=== PATIENT | female | born 1945 | race Caucasian/White ===

== ENCOUNTER 2019-12-30 11:49 | Inpatient (IN) | payer MEDICARE ==
[~2019-12-30] VITALS: Ht 165.1 cm; Wt 68.8 kg
--- NOTE | 2019-12-30 15:45 | NUR ---
PATIENT ARRIVED A DIRECT ADMIT AT THIS TIME VIA AMBULANCE FROM [facility].
--- NOTE | 2019-12-30 15:54 | NUR ---
PAGED HOSPITALIST GROUP TO GET ORDERS FROM RECEIVING MD. PAGED "SERVANDO [phone]- DIRECT ADMIT HERE RAMIRO BEAN. WHICH DOCTOR HAS NEXT ADMIT?"
--- NOTE | 2019-12-30 15:59 | NUR ---
PAGED DR. LAZARO, "Janet [phone]- DIRECT ADMIT RAMIRO AMAYA HERE FROM [facility] WITH NSTEMI. ADMIT ORDERS NEEDED. "
[2019-12-30 16:00] VITALS: BP 110/73
[2019-12-30] MEDS ORDERED: heparin 25,000 UNIT/250ml bag 250 ML IV SCH (16:25)
[2019-12-30] MEDS ORDERED: heparin 10,000 units/1 ML INJ IV PRN (16:25)
[2019-12-30] MEDS ORDERED: heparin 10,000 units/1 ML INJ IV ONE (16:25)
[2019-12-30] MEDS ORDERED: HYDROcodone/acetaminophen 5mg/325mg tablet PO PRN (16:30)
[2019-12-30] MEDS ORDERED: acetaminophen 325mg tablet PO PRN ×2 (16:30)
[2019-12-30] MEDS ORDERED: mag hydrox/Alum hydrox/simeth 30ml oral suspension PO PRN (16:30)
[2019-12-30] MEDS ORDERED: ondansetron/PF 4mg/2ml inj IV PRN (16:30)
[2019-12-30] MEDS ORDERED: morphine 2 MG/ML inj. syringe IV PRN ×2 (16:30)
[2019-12-30] MEDS ORDERED: magnesium hydroxide 30ml (MOM) UD suspension PO PRN (16:30)
[2019-12-30 17:12] LABS: ALBUMIN 2.7 G/DL (3.4-5.0); BLOOD UREA NITROGEN 34 MG/DL (7-18); GLUCOSE 113 MG/DL (70-104); SODIUM 138 MMOL/L (135-145)
[2019-12-30] MEDS ORDERED: SIMV-45 PO (17:17)
[2019-12-30] MEDS ORDERED: CARV3.122 PO (17:17)
[2019-12-30] MEDS ORDERED: OXCA150T14 PO (17:17)
[2019-12-30] MEDS ORDERED: DONE-46 PO (17:17)
[2019-12-30] MEDS ORDERED: ALBU18HF2 PO (17:17)
[2019-12-30] MEDS ORDERED: LOSA50TA64 PO (17:17)
[2019-12-30] MEDS ORDERED: ESTR42.510 TOP (17:17)
[2019-12-30] MEDS ORDERED: TIOT18CA3 PO (17:17)
[2019-12-30] MEDS ORDERED: NYSPWD TOP (17:17)
[2019-12-30] MEDS ORDERED: SPIR25TA5 PO (17:17)
[2019-12-30] MEDS ORDERED: AMLO5TAB16 PO (17:17)
[2019-12-30 17:31] LABS: PARTIAL THROMBOPLASTIN TIME 27 SECONDS (22-32)
[2019-12-30 17:35] LABS: ANION GAP 6 (8-16); BUN/CREATININE RATIO 36.2 (6.6-38.0); CALCIUM 9.3 MG/DL (8.5-10.1); CHLORIDE 109 MMOL/L (99-107); CREATININE 0.94 MG/DL (0.40-0.90); POTASSIUM 5.6 MMOL/L (3.5-5.1); TOTAL CARBON DIOXIDE 22.6 MMOL/L (24-32); eGFR 58 ML/MIN
[2019-12-30 17:37] LABS: BASOPHILS % (AUTO) 0.1 % (0-1); EOSINOPHILS % (AUTO) 0 % (0-6); HEMATOCRIT 42.8 % (35.0-45.0); HEMOGLOBIN 13.8 g/dl (12.0-16.0); LYMPHOCYTES # (AUTO) 0.8 X10'3 (1.1-4.8); LYMPHOCYTES % (AUTO) 6.2 % (21-51); MEAN CORPUSCULAR HEMOGLOBIN 29.2 PG (27.0-31.0); MEAN CORPUSCULAR HGB CONC 32.4 g/dL (33.0-36.5); MEAN CORPUSCULAR VOLUME 90.3 FL (78-98); MEAN PLATELET VOLUME 9.4 FL (7.4-10.4); MONOCYTES # (AUTO) 0.8 X10'3 (0-0.9); MONOCYTES % (AUTO) 5.9 % (2-12); NEUTROPHILS # (AUTO) 11.4 X10'3 (1.8-7.7); NEUTROPHILS % (AUTO) 87.8 % (42-75); PLATELET COUNT 140 X10'3 (140-440); RED BLOOD COUNT 4.74 X10'6 (4.20-5.60); RED CELL DISTRIBUTION WIDTH 16.5 % (11.5-14.5)
[2019-12-30 17:47] LABS: TROPONIN I 7.99 NG/ML (0.0-0.05)
[2019-12-30 18:00] VITALS: BP 154/97
--- NOTE | 2019-12-30 18:03 | NUR ---
Paged hosp, "Kerline [phone]- solange Lara, Crit trop 7.99 today (last trop was 7.6 at prev hosp) BNP 23, 944, K+ 5.6, WBC 13 etc. See labs"
--- NOTE | 2019-12-30 18:08 | NUR ---
Gave report to Susan ZUNIGA, transferred care.
[2019-12-30] MEDS ORDERED: furosemide 20 MG/2 ML vial IV ONE (18:10)
[2019-12-30] MEDS: carVEDilol 3.125mg tablet PO SCH (20:09)
[2019-12-30 22:00] VITALS: BP 144/80
[2019-12-30] MEDS: ipratropium/albuterol 3ml nebule NEB PRN (23:16)
[2019-12-31 02:00] VITALS: BP 135/80
--- NOTE | 2019-12-31 06:32 | NUR ---
Patient in room PCU 3027. I have received report from Susan ZUNIGA and had the opportunity to ask questions and assume patient care.
[2019-12-31 07:00] VITALS: BP 124/64
[2019-12-31 07:26] LABS: BASOPHILS % (AUTO) 0.3 % (0-1); EOSINOPHILS % (AUTO) 0.1 % (0-6); HEMATOCRIT 44.3 % (35.0-45.0); HEMOGLOBIN 14.5 g/dl (12.0-16.0); LYMPHOCYTES # (AUTO) 1.5 X10'3 (1.1-4.8); LYMPHOCYTES % (AUTO) 15.4 % (21-51); MEAN CORPUSCULAR HEMOGLOBIN 29.2 PG (27.0-31.0); MEAN CORPUSCULAR HGB CONC 32.6 g/dL (33.0-36.5); MEAN CORPUSCULAR VOLUME 89.5 FL (78-98); MEAN PLATELET VOLUME 9.3 FL (7.4-10.4); MONOCYTES # (AUTO) 0.5 X10'3 (0-0.9); MONOCYTES % (AUTO) 5.4 % (2-12); NEUTROPHILS # (AUTO) 7.7 X10'3 (1.8-7.7); NEUTROPHILS % (AUTO) 78.8 % (42-75); PLATELET COUNT 150 X10'3 (140-440); RED BLOOD COUNT 4.95 X10'6 (4.20-5.60); RED CELL DISTRIBUTION WIDTH 16.3 % (11.5-14.5); WHITE BLOOD COUNT 9.7 X10'3 (4.5-11.0)
[2019-12-31 07:43] LABS: ALBUMIN 2.6 G/DL (3.4-5.0); ANION GAP 8 (8-16); BLOOD UREA NITROGEN 39 MG/DL (7-18); BUN/CREATININE RATIO 41.1 (6.6-38.0); CHLORIDE 106 MMOL/L (99-107); CHOL/HDL RATIO 4.1 (0.00-4.99); CHOLESTEROL 152 MG/DL (0-200); CREATININE 0.95 MG/DL (0.40-0.90); GLUCOSE 88 MG/DL (70-104); HDL CHOLESTEROL 37 MG/DL (35-60); LDL CHOLESTEROL 99 MG/DL (50-100); POTASSIUM 4.1 MMOL/L (3.5-5.1); SODIUM 142 MMOL/L (135-145); TOTAL CARBON DIOXIDE 28.3 MMOL/L (24-32); TRIGLYCERIDES 157 MG/DL (20-135); eGFR 58 ML/MIN
[2019-12-31] MEDS: aspirin 81mg tablet.DR PO SCH (07:45)
[2019-12-31] MEDS: carVEDilol 3.125mg tablet PO SCH ×2 (07:46→19:00)
[2019-12-31] MEDS: furosemide 20 MG/2 ML vial IV SCH ×2 (07:46→19:00)
--- NOTE | 2019-12-31 08:00 | NUR ---
Dr. Welsh and nurse at bedside with patient. Md is aware that patient is schedule for heart cath w or w/o stents. Pt denies chest pain. No new ordered at this time. Will continue to monitor.
[2019-12-31] MEDS ORDERED: aspirin 81mg tab.chew PO SCH (08:30)
[2019-12-31] MEDS ORDERED: ipratropium 0.5 MG/2.5ML nebule IH PRN (10:35)
[2019-12-31 11:00] VITALS: BP 93/64
[2019-12-31] MEDS ORDERED: LIDOcaine/PRILOcaine 5gm cream TP ONE (13:30)
--- NOTE | 2019-12-31 13:48 | NUR ---
Spoke with patient's sister, Mai. Mai is aware of plan. patient is prep and ready to go. Emla cream will be applied at 1630. Will continue to monitor.
--- NOTE | 2019-12-31 14:50 | NUR ---
Faxed over Pharmacy medicaiton list to ICU for khraling to review. Pt states that [place] to [place],
[2019-12-31 15:00] VITALS: BP 103/78
[2019-12-31] MEDS: atorvastatin 20mg tablet PO SCH (16:22)
--- NOTE | 2019-12-31 17:42 | NUR ---
Dr. Collazo at bedside with patient. New orders to hold off on Heart Cath today. Start Brillant 180 Po now then 90 BID Po. Patient can follow up with out patient when discharge. Will continue to monitor. Addendum: 12/31/19 at 1828 by Rolando Vance RN CALLED DR. LAZARO PER NEW ORDER OF BRILINTA AND MEDICAL MANAGEMENT WITH POSSIBLE D/C - REQUESTED D/C OF HEPARIN GTT. MD AGREED TO ORDER.
[2019-12-31] MEDS ORDERED: ticagrelor 90mg tablet PO ONE (17:45)
[2019-12-31 18:00] VITALS: BP 126/80
--- NOTE | 2019-12-31 18:25 | NUR ---
PAGED TO HOSPITALIST promotional table spacer PAGER ID: [phone] MESSAGE: [id number] TOMASRAMIRO GARCIA 74/F - PT NO LONGER TO BE CATH'D AND WILL BE MANAGED MEDICALLY. WOO STARTED PT ON BRILINTA TONIGHT AND BID 90MG WITH POSSIBLE D/C TMW. WANT TO VERIFY D/C ORDERS FOR CARDIAC HEPARIN GTT. [id number] ANKITA
--- NOTE | 2019-12-31 18:27 | NUR ---
Problems reprioritized. Patient report given, questions answered & plan of care reviewed with Chris RN.
--- NOTE | 2019-12-31 18:34 | NUR ---
Patient in room PCU 3027. I have received report from BALBIR Baker and had the opportunity to ask questions and assume patient care.
--- NOTE | 2019-12-31 19:10 | NUR ---
Dr. Milli Collazo called to verify patient status. Discussed d/c of heparin gtt and admin of brillinta medication. No new orders at this time.
[2019-12-31] MEDS: oxcarbazepine 150mg tablet PO SCH (19:15)
[2019-12-31] MEDS: ipratropium/albuterol 3ml nebule NEB PRN (20:23)
--- NOTE | 2019-12-31 20:33 | NUR ---
Pt c/o nausea with desaturation experience - no chest pain, no back pain, slight SOB. Pt on 6L NC from RA. Will perform stat ekg to verify cardiac status. Addendum: 01/01/20 at 0627 by Rolando Vance RN EKG TURNED OUT TO BE AFIB, NEGATIVE FOR STEMI, WILL TITRATE O2 DOWN. PT NO LONGER C/O OF NAUSEA.
[2020-01-01 02:00] VITALS: BP 142/85
[2020-01-01 05:17] LABS: ALBUMIN 2.8 G/DL (3.4-5.0); ANION GAP 7 (8-16); BLOOD UREA NITROGEN 39 MG/DL (7-18); BUN/CREATININE RATIO 36.4 (6.6-38.0); CALCIUM 9.3 MG/DL (8.5-10.1); CHLORIDE 102 MMOL/L (99-107); CREATININE 1.07 MG/DL (0.40-0.90); GLUCOSE 106 MG/DL (70-104); POTASSIUM 3.8 MMOL/L (3.5-5.1); SODIUM 139 MMOL/L (135-145); eGFR 50 ML/MIN
[2020-01-01 05:26] LABS: BASOPHILS % (AUTO) 0.4 % (0-1); EOSINOPHILS # (AUTO) 0.1 X10'3 (0-0.9); HEMATOCRIT 48.8 % (35.0-45.0); LYMPHOCYTES # (AUTO) 0.8 X10'3 (1.1-4.8); LYMPHOCYTES % (AUTO) 11.6 % (21-51); MEAN CORPUSCULAR HEMOGLOBIN 29.1 PG (27.0-31.0); MEAN CORPUSCULAR HGB CONC 32.8 g/dL (33.0-36.5); MEAN CORPUSCULAR VOLUME 88.7 FL (78-98); MEAN PLATELET VOLUME 9.1 FL (7.4-10.4); MONOCYTES # (AUTO) 0.4 X10'3 (0-0.9); MONOCYTES % (AUTO) 6.3 % (2-12); NEUTROPHILS # (AUTO) 5.4 X10'3 (1.8-7.7); NEUTROPHILS % (AUTO) 80.7 % (42-75); PLATELET COUNT 164 X10'3 (140-440); RED CELL DISTRIBUTION WIDTH 16.1 % (11.5-14.5); WHITE BLOOD COUNT 6.7 X10'3 (4.5-11.0)
[2020-01-01 06:00] VITALS: BP 108/62
--- NOTE | 2020-01-01 06:00 | NUR ---
Patient in room PCU 3027. I have received report from Chris ZUNIGA and had the opportunity to ask questions and assume patient care.
--- NOTE | 2020-01-01 06:00 | NUR ---
Patient in room PCU 3027. I have received report from Chris ZUNIGA and had the opportunity to ask questions and assume patient care.
--- NOTE | 2020-01-01 06:28 | NUR ---
Problems reprioritized. Patient report given, questions answered & plan of care reviewed with BLAINE ZUNIGA.
[2020-01-01] MEDS ORDERED: atorvastatin 20mg tablet PO SCH (08:00)
[2020-01-01] MEDS: oxcarbazepine 150mg tablet PO SCH ×2 (08:25→19:19)
[2020-01-01] MEDS: donepezil 5mg tablet PO SCH (08:25)
[2020-01-01] MEDS: aspirin 81mg tablet.DR PO SCH (08:25)
[2020-01-01] MEDS: furosemide 20 MG/2 ML vial IV SCH ×2 (08:25→19:19)
[2020-01-01] MEDS: ticagrelor 90mg tablet PO SCH ×2 (08:25→19:19)
[2020-01-01] MEDS: carVEDilol 3.125mg tablet PO SCH ×2 (08:25→19:20)
[2020-01-01] MEDS: atorvastatin 20mg tablet PO SCH (08:25)
[2020-01-01 11:00] VITALS: BP 92/50
--- NOTE | 2020-01-01 13:52 | NUR ---
Physical therapy refusing to work with patient because of critical troponin levels. I told them Dr. Ibarra was okay with physical therapy working with the patient as Dr. Ibarra is trying to discharge the patient. Will notify Dr. Ibarra.
[2020-01-01 15:00] VITALS: BP 94/64
[2020-01-01 18:00] VITALS: BP 98/60
--- NOTE | 2020-01-01 18:27 | NUR ---
Problems reprioritized. Patient report given, questions answered & plan of care reviewed with Chris RN.
[2020-01-01 23:00] VITALS: BP 116/68
[2020-01-02 03:00] VITALS: BP 121/75
--- NOTE | 2020-01-02 06:02 | NUR ---
Problems reprioritized. Patient report given, questions answered & plan of care reviewed with Alysha ZUNIGA.
--- NOTE | 2020-01-02 06:07 | NUR ---
Patient in room PCU 3027. I have received report from NADIA Perez and had the opportunity to ask questions and assume patient care.
[2020-01-02 07:00] VITALS: BP 102/59
[2020-01-02 07:56] LABS: BASOPHILS % (AUTO) 0.4 % (0-1); EOSINOPHILS # (AUTO) 0.1 X10'3 (0-0.9); EOSINOPHILS % (AUTO) 1.2 % (0-6); HEMATOCRIT 51.2 % (35.0-45.0); LYMPHOCYTES # (AUTO) 0.8 X10'3 (1.1-4.8); LYMPHOCYTES % (AUTO) 11.7 % (21-51); MEAN CORPUSCULAR HEMOGLOBIN 29.3 PG (27.0-31.0); MEAN CORPUSCULAR HGB CONC 33.2 g/dL (33.0-36.5); MEAN CORPUSCULAR VOLUME 88.1 FL (78-98); MONOCYTES # (AUTO) 0.6 X10'3 (0-0.9); MONOCYTES % (AUTO) 8.5 % (2-12); NEUTROPHILS # (AUTO) 5.4 X10'3 (1.8-7.7); NEUTROPHILS % (AUTO) 78.2 % (42-75); PLATELET COUNT 186 X10'3 (140-440); RED BLOOD COUNT 5.82 X10'6 (4.20-5.60); RED CELL DISTRIBUTION WIDTH 15.8 % (11.5-14.5); WHITE BLOOD COUNT 6.9 X10'3 (4.5-11.0)
[2020-01-02] MEDS: furosemide 20 MG/2 ML vial IV SCH ×2 (08:00→19:14)
[2020-01-02] MEDS: carVEDilol 3.125mg tablet PO SCH ×2 (08:00→19:14)
[2020-01-02 08:10] LABS: ALBUMIN 3.1 G/DL (3.4-5.0); ANION GAP 9 (8-16); BLOOD UREA NITROGEN 41 MG/DL (7-18); BUN/CREATININE RATIO 33.3 (6.6-38.0); CALCIUM 9.4 MG/DL (8.5-10.1); CHLORIDE 106 MMOL/L (99-107); CREATININE 1.23 MG/DL (0.40-0.90); GLUCOSE 125 MG/DL (70-104); SODIUM 146 MMOL/L (135-145); TOTAL CARBON DIOXIDE 31.4 MMOL/L (24-32); eGFR 43 ML/MIN
[2020-01-02] MEDS: ticagrelor 90mg tablet PO SCH (09:21)
[2020-01-02] MEDS: atorvastatin 20mg tablet PO SCH (09:21)
[2020-01-02] MEDS: oxcarbazepine 150mg tablet PO SCH ×2 (09:21→19:14)
[2020-01-02] MEDS: donepezil 5mg tablet PO SCH (09:21)
[2020-01-02] MEDS: aspirin 81mg tablet.DR PO SCH (09:29)
[2020-01-02 11:00] VITALS: BP 125/86
[2020-01-02 15:00] VITALS: BP 139/91
--- NOTE | 2020-01-02 15:41 | NUR ---
Paged Dr Ibarra PAGER ID: [phone] MESSAGE: Re Kira Lara [id number] Pt's PCP would like to talk to you regarding pt's care. Dr Marin Pate [phone]. Thanks Alysha [phone]
[2020-01-02 18:00] VITALS: BP 154/69
--- NOTE | 2020-01-02 18:30 | NUR ---
Problems reprioritized. Patient report given, questions answered & plan of care reviewed with NADIA Leach. Pt resting comfortably at change of shift. Infomred RN that patient's oxygen level needs to be monitored, we are trialing her off of oxygen with possibly qualifying her with home 02 tomorrow.
[2020-01-02] MEDS: apixaban 2.5mg tablet PO SCH (19:14)
[2020-01-02 22:00] VITALS: BP 112/73
[2020-01-03 02:00] VITALS: BP 121/74
[2020-01-03 05:45] LABS: BASOPHILS % (AUTO) 0.3 % (0-1); EOSINOPHILS # (AUTO) 0.2 X10'3 (0-0.9); EOSINOPHILS % (AUTO) 2.3 % (0-6); HEMATOCRIT 50.4 % (35.0-45.0); HEMOGLOBIN 16.8 g/dl (12.0-16.0); LYMPHOCYTES % (AUTO) 14.5 % (21-51); MEAN CORPUSCULAR HEMOGLOBIN 29.8 PG (27.0-31.0); MEAN CORPUSCULAR HGB CONC 33.3 g/dL (33.0-36.5); MEAN CORPUSCULAR VOLUME 89.5 FL (78-98); MEAN PLATELET VOLUME 9.2 FL (7.4-10.4); MONOCYTES # (AUTO) 0.6 X10'3 (0-0.9); MONOCYTES % (AUTO) 8.5 % (2-12); NEUTROPHILS # (AUTO) 5.2 X10'3 (1.8-7.7); NEUTROPHILS % (AUTO) 74.4 % (42-75); PLATELET COUNT 183 X10'3 (140-440); RED BLOOD COUNT 5.63 X10'6 (4.20-5.60); RED CELL DISTRIBUTION WIDTH 15.9 % (11.5-14.5); WHITE BLOOD COUNT 7.1 X10'3 (4.5-11.0)
[2020-01-03 05:53] LABS: ANION GAP 5 (8-16); BLOOD UREA NITROGEN 44 MG/DL (7-18); BUN/CREATININE RATIO 35.8 (6.6-38.0); CALCIUM 8.9 MG/DL (8.5-10.1); CHLORIDE 104 MMOL/L (99-107); CREATININE 1.23 MG/DL (0.40-0.90); GLUCOSE 124 MG/DL (70-104); SODIUM 140 MMOL/L (135-145); TOTAL CARBON DIOXIDE 31.3 MMOL/L (24-32); eGFR 43 ML/MIN
[2020-01-03 06:00] VITALS: BP 89/52
--- NOTE | 2020-01-03 06:03 | NUR ---
Problems reprioritized. Patient report given, questions answered & plan of care reviewed with Alysha Jones RN.
--- NOTE | 2020-01-03 06:24 | NUR ---
Patient in room PCU 3027. I have received report from NADIA Leach and had the opportunity to ask questions and assume patient care. Pt sleeping comfortably at change of shift.
[2020-01-03] MEDS: apixaban 2.5mg tablet PO SCH (07:41)
[2020-01-03] MEDS: atorvastatin 20mg tablet PO SCH (07:42)
[2020-01-03] MEDS: oxcarbazepine 150mg tablet PO SCH (07:42)
[2020-01-03] MEDS: donepezil 5mg tablet PO SCH (07:42)
[2020-01-03] MEDS: aspirin 81mg tablet.DR PO SCH (07:43)
[2020-01-03] MEDS: carVEDilol 3.125mg tablet PO SCH (07:48)
[2020-01-03] MEDS ORDERED: clopidogrel 75mg tablet PO SCH (08:00)
[2020-01-03] MEDS: furosemide 20 MG/2 ML vial IV SCH (08:00)
--- NOTE | 2020-01-03 10:15 | NUR ---
O2 Sat at rest on room air:__88_% If below 89%: Recovery O2 Sat at rest on _2__LPM:_95%: via nasal cannula____(mask/nasal cannula, etc..) No further documentation is necessary. If O2 Sat did not drop below 89% on room air,ambulate patient on room air. O2 Sat while ambulating on room air:___% Recovery O2 Sat while ambulating on ___LPM:___% No further documentation is necessary. If patient does not drop below 89% while ambulating, he/she does not qualify for home O2.
[2020-01-03 10:44] VITALS: BP 116/75
[2020-01-03] MEDS ORDERED: CLOP75TA35 PO (10:47)
[2020-01-03] MEDS ORDERED: APIX2.5T PO (10:47)
[2020-01-03] MEDS ORDERED: ASPI-1071 PO (10:47)
[2020-01-03 11:00] VITALS: BP 124/70
--- NOTE | 2020-01-03 14:26 | NUR ---
Patient stable for discharge per MD orders. All instructions were given to patient and sister (Mai). PIV discontinued, cannula intact. Tele discontinued, television mechanic notified. All belongings collected and sent with pt. Appt made with Dr Zhu sunday01/05/20 at 10:30. Wheeled to [facility] and placed in sister's [facility]. Medications called into Irma at [facility]. Addendum: 01/03/20 at 1458 by Alysha Gomez RN Called [facility] in [place], [place].
== END 2020-01-03 13:21 | disposition home or self-care (01) | DRG 280 ==
LOC: PCU 3S 15:42
PROVIDERS: ADMIT Internal Medicine; ATTEND Internal Medicine
DX: I21.4 Non-ST elevation (NSTEMI) myocardial infarction (principal); J96.01 Acute respiratory failure with hypoxia; I50.21 Acute systolic (congestive) heart failure; E78.5 Hyperlipidemia, unspecified; I11.0 Hypertensive heart disease with heart failure; F03.90 Unspecified dementia, unspecified severity, without behavioral disturbance, psychotic disturbance, mood disturbance, and anxiety; I48.0 Paroxysmal atrial fibrillation; J44.9 Chronic obstructive pulmonary disease, unspecified; F17.210 Nicotine dependence, cigarettes, uncomplicated; Z86.73 Personal history of transient ischemic attack (TIA), and cerebral infarction without residual deficits; R03.1 Nonspecific low blood-pressure reading
CPT/HCPCS: 36415; 71045; 76937; 80048; 80061; 83880; 84484; 85025; 85610; 85730; 87081; 93306; 94640; 94667; 94760; 97110; 97116; 97161; 97530; G0378; J1644; J1940